=== PATIENT | female | born 1980 | race Caucasian/White ===

== ENCOUNTER 2021-12-30 07:09 | Outpatient (CLI) | payer OTHER, SELFPAY ==
--- NOTE | 2021-12-30 07:15 | CRLHL7_ITS ---
For Patients: As a result of the Century Cures Act, medical imaging exams and procedure reports are released immediately into your electronic medical record. You may view this report before your referring provider. If you have questions, please contact your health care provider. INDICATION: MENORRHAGIA COMPARISON: none TECHNIQUE: 2D santos scale and color Doppler images were acquired of the pelvis using a transabdominal and transvaginal approach. FINDINGS: Sonographic images demonstrate a normal size and smooth outer contour of the uterus. Uterus measures 7.6 cm in length by 4.1 cm in AP diameter by 4.9 cm in transverse dimension. The myometrium has a mildly heterogeneous echotexture. The endometrial lining measures 10 mm in composite thickness. Multiple cervical nabothian cysts are present, measuring up to 1.6 cm. The right ovary measures 3.6 x 2.5 x 2.8 cm in size and the left ovary measures 3.3 x 1.9 x 1.9 cm. The ovaries demonstrate normal arterial and venous blood flow on color Doppler analysis. There are no suspicious fluid collections within the cul-de-sac. IMPRESSION: Endometrial thickness 1 centimeter. Dictated by Mo Mosqueda MD @ 12/30/2021 8:48:42 AM (Electronically Signed)
== END 2021-12-30 07:10 | disposition home or self-care (01) ==
PROVIDERS: Visit Provider Registered Nurse
DX: N92.0 Excessive and frequent menstruation with regular cycle (principal); R93.89 Abnormal findings on diagnostic imaging of other specified body structures
CPT/HCPCS: 76830; 76856

== ENCOUNTER 2022-02-17 08:08 | Outpatient (CLI) | payer OTHER, SELFPAY ==
--- NOTE | 2022-02-17 08:15 | CRLHL7_ITS ---
For Patients: As a result of the Century Cures Act, medical imaging exams and procedure reports are released immediately into your electronic medical record. You may view this report before your referring provider. If you have questions, please contact your health care provider. BILATERAL SCREENING MAMMOGRAM WITH COMPUTER-AIDED DETECTION AND TOMOSYNTHESIS TECHNIQUE: CC and MLO views were obtained. These mammographic images have been obtained using full-field digital technique. These mammographic images were interpreted with the benefit of computer-aided detection. Breast tomosynthesis was used in this interpretation. COMPARISON FILM: No previous. Baseline study. FINDINGS: The breasts are almost entirely fatty. IMPRESSION: There is no radiographic evidence for malignancy. ASSESSMENT: BI-RADS Category 1: Negative RECOMMENDATION: Routine screening mammogram in 1 year. A lay language report of this examination will be provided to the patient. MO CLINE M.D. Diagnostic Radiologist [email or web address] Transcribed: 3:[address]/Dictated by: Mo Cline MD @ 02/17/2022 12:46:00 PM (Electronically Signed)
== END 2022-02-17 08:09 | disposition home or self-care (01) ==
PROVIDERS: Visit Provider Registered Nurse
DX: Z12.31 Encounter for screening mammogram for malignant neoplasm of breast (principal)
CPT/HCPCS: 77063; 77067